=== PATIENT | male | born 1995 | race Caucasian/White ===

== ENCOUNTER 2018-03-04 15:21 | Emergency (ER) | payer SELFPAY ==
[2018-03-04 15:27] VITALS: BP 141/81; BMI 36.9
[2018-03-04] MEDS ORDERED: TORADOL 60 MG VIAL IM ONE (17:21)
--- NOTE | 2018-03-04 17:22 | DR.EXTPAIN ---
HPI - Time seen Time seen: 17:45 - PCP Primary Care Physician: MIHAI - HPI Comment HPI Comment: UNABLE TO PUT WT ON FOOT. TOP OF FOOT BRUISE AND SWOLLEN. HIT AREA ALSO. - Complaint/Symptoms Chief Complaint Doctor Comments: LACERATION/PUNTURE WOUND TOP OF LT FOOT. Chief Complaint:: CUT ON TOP OF LEFT FOOT - Nurses notes reviewed Nurses Notes Review: Yes - Source History Provided: Patient - Mode of arrival Mode of Arrival: Wheelchair - Timing Onset of Chief Complaint: 03/04/18 - Context History of: None - Associated signs and symptoms Associated Signs and Symptoms: Pain, Swelling, Bruising PMH - PMH Past Medical History: No Past Medical History: Asthma Past Surgical History: Yes Surgical History: Other Past Surgical History Comment: TEETH - Family History History of Family Medical Conditions: No - Social History Does patient currently use any type of tobacco product: Yes Have you used tobacco products in the last 12 months: Yes Type of Tobacco Use: Cigarettes How many years tobacco product used: 3 Alcohol Use: None Do you use any recreational Drugs:: No Lives With: Family Lives Where: Home - infectious screening In the last 2 months have you had wt loss of >10#?: NO Have you had fever, night sweats or hemotysis?: No Have you traveled outside the country in the last 6 months?: No Isolation: Standard ROS - Review of Systems Constitutional: No Symptoms Reported Eyes: No Symptoms Reported ENTM: No Symptoms Reported Respiratoy: No Symptoms Reported Cardiovascular: No Symptoms Reported Gastrointestinal/Abdominal: No Symptoms Reported Genitourinary: No Symptoms Reported Neurological: No Symptoms Reported Musculoskeletal: Left, Foot Integumentary: Bruises, Other (SWELLING LEFT FOOT.) Hematologic/Lymphatic: No Symptoms Reported Endocrine: No Symptoms Reported All Other Systems: Reviewed and Negative PE - Vital Signs Vitals: Pulse Rate 117 Respiratory Rate 21 Blood Pressure 141/81 O2 Sat by Pulse Oximetry 98 - General Limitations: No Limitations General Appearance: Alert - Head Head Exam: Normal Inspection - Eyes Eye exam: Normal Appearance - ENT ENT Exam: Normal External Ear Exam - Neck Neck Exam: Normal Inspection - Chest Chest Inspection: Symmetric Chest Wall Rise - Respiratory Respiratory Exam: Normal Lung Sounds Bilat Respiratory Exam: Bilateral Clear to Auscultation - Cardiovascular Cardiovascular Exam: Regular Rate, Normal Rhythm, Normal Heart Sounds - Abdominal Exam Abdominal Exam: Normal Bowel Sounds, Soft, Tenderness - Extremities Extremities Exam: Normal Inspection - Upper Extremities Shoulder Exam: Normal Inspection - Lower Extremities Neurovascular/Tendon Exam: Normal Capillary Refill Gait Exam: Observed & Limited by Pain - Back Back Exam: Normal Inspection - Neurological Neurological Exam: Alert, Oriented X3 - Psychiatric Psychiatric Exam: Normal Affect, Normal Mood - Skin Skin Exam: Erythema Type of Lesion: Laceration (PUNCTURE WOUND), Abrasion MDM - Differential Diagnosis Differential Diagnosis: Abrasion, Contusion, Fracture, Laceration, Sprain, Other (PUNTURE WOUND) Course - Treatment Treatment: SEE ORDERS. IM PAIN MED IN ED. WOUND IRREGATED WITH NS IN ED AND DRESSING APPLIED. - Reevaluation 1st: Improved (PAIN IMPROVING.) - Education/Counseling Education/Counseling: Patient, Education Educated On: Diagnosis, Needs for Follow Up ROR - XRAY XRAY Interpreted by: Radiologist XRAY Findings: REPORT DISCUSS WITH PATIENT. - Diagnosis Discharge Problem: Foot pain, left Foot contusion Qualifiers: Encounter type: initial encounter Laterality: left Qualified Code(s): S90.32XA - Contusion of left foot, initial encounter Foot sprain Qualifiers: Encounter type: initial encounter Laterality: left Qualified Code(s): S93.602A - Unspecified sprain of left foot, initial encounter - Discharge Plan Disposition: HOME, SELF-CARE Condition: Stable Prescriptions: Ibuprofen [MOTRIN TAB 800 MG *] 800 mg PO Q8H PRN #30 tab PRN Reason: Pain/Inflammation Tramadol HCl 50 mg PO Q8H #15 tablet - Follow ups/Referrals Follow ups/Referrals: Keegan Hines [STAFF PHYSICIAN] - 2 days [facility],None [Primary Care Provider] - 2 days - Instructions Instructions: Foot Contusion, [id number], Foot Sprain Additional Instructions: RETURN TOP ED IF WORSE.
[2018-03-04] MEDS ORDERED: TORADOL 60 MG VIAL ONE (17:23)
--- NOTE | 2018-03-04 18:21 | RAD ---
HISTORY: Laceration to top of foot Study: Three views left foot Comparison: None Findings: Normal alignment. No acute fracture or dislocation. There is soft tissue swelling and gas along the d orsal aspect of the foot compatible with laceration. No retained radiopaque foreign body identified. IMPRESSION: 1. Soft tissue injury dorsal aspect of the foot without acute osseous abnormality. Reported By:
[2018-03-04] MEDS ORDERED: ZOFRAN INJ 4 MG VIAL IM ONE (18:25)
[2018-03-04] MEDS ORDERED: DEMEROL INJ IM ONE (18:25)
[2018-03-04] MEDS ORDERED: DEMEROL INJ ONE (18:27)
[2018-03-04] MEDS ORDERED: ZOFRAN INJ 4 MG VIAL ONE (18:27)
== END 2018-03-04 18:46 | disposition home or self-care (01) ==
LOC: ER 15:36
DX: S90.32XA Contusion of left foot, initial encounter (principal); S93.602A Unspecified sprain of left foot, initial encounter; W45.8XXA Other foreign body or object entering through skin, initial encounter; Y92.9 Unspecified place or not applicable
CPT/HCPCS: 73630; 96372; 99282; 99283; J1885; J2175; J2405